=== PATIENT | female | born 1965 | race Asian ===

== ENCOUNTER → 2019-05-20 | Day surgery (SDC) | payer OTHER ==
--- NOTE | 2019-05-19 09:51 | Diagnostic Imaging Report ---
Exam: KUB - 2 views Indication: Preoperative Comparison: None Findings: Right lower pole renal calculi measure up to 10 mm and 7 mm. No other radiographically apparent renal calculi. Nonobstructive bowel gas pattern. No free air. Small phleboliths in the left pelvis. The osseous structures appear unremarkable. Impression: Right lower pole renal calculi measure 10 mm and 7 mm. Signed by: Kenya Banda MD on 05/19/2019 9:48 AM
[~2019-05-20] MED LIST: CEFTRIAXONE SOD 1 GM/NS 50 ML 50 ML IV ONE; CETIRIZINE PO; DEXAMETHASONE SOD PHOS INJ 4 MG/ML VIAL ONE; GLUCOSAMINE DA1 EACH; GLUCOSAMINE PO; LIDOCAINE HCL 2% LOCAL INJ 5 ML SDV VIAL INJ ONE; LOSARTAN PO; ONDANSETRON HCL INJ 2MG/ML 2ML 2 MG/ML VIAL ONE; PROPOFOL IV EMULSION 10 MG/ML 20 ML VIAL ONE; SEVOFLURANE INHAL SOLN 250 ML PEN BTL ONE
--- OUTSIDE RECORDS SUMMARY | 2019-05-20 05:45 | XMS REPORT ---
[facility] Address Unknown Phone Unavailable Care Team Providers Care [employer] Name Role Phone LILIAM BUNCH Unavailable Unavailable Problems This patient has no known problems. Allergies, Adverse Reactions, Alerts This patient has no known allergies or adverse reactions. Medications This patient has no known medications. Results Test Description Test Time Test Comments Text Results Atomic Results Result Comments ABDOMEN-1VIEW ([facility]) 2019-05-19 09:46:00 [place] [address] Patient Name: WIL PANTOJA MR #: [id number] : 1965 Age/Sex: 54/F Req #: [id number] Adm Physician: Ordered by: LILIAM BUNCH MD Report #: [id number] Location: OR Room/Bed: Procedure: [id number] DX/ABDOMEN-1VIEW (KUB) Exam Date: Exam Time: REPORT STATUS: Signed Exam: KUB - 2 views Indication: Preoperative Comparison: None Findings: Right lower pole renal calculi measure up to 10 mm and 7 mm. No other radiographically apparent renal calculi. Nonobstructive bowel gas pattern. No free air. Small phleboliths in the left pelvis. The osseous structures appear unremarkable. Impression: Right lower pole renal calculi measure 10 mm and 7 mm. Signed by: Pito Banda MD on 05/19/2019 9:48 AM Dictated By: PITO BANDA MD 7 Transcribed By: PAULO on 05/19/19947 COPY TO: LILIAM BUNCH MD
[2019-05-20 08:45] VITALS: BP 139/90
--- NOTE | 2019-05-25 14:50 | Operative Report ---
DATE OF PROCEDURE: 05/20/2019 SURGEON: Kodi Villarreal MD PREOPERATIVE DIAGNOSIS: Right kidney stone. POSTOPERATIVE DIAGNOSIS: Right kidney stone. PROCEDURES: 1. Staged right-sided shock wave lithotripsy. 2. Supervision of fluoroscopy. ANESTHESIA: General. ESTIMATED BLOOD LOSS: Minimal. COMPLICATIONS: None. INDICATIONS: Ms. Carlson is a 54-year-old female with a history of intermittently symptomatic right-sided kidney stone. She and I had a long discussion about alternatives, risks, and benefits of doing nothing, shock wave lithotripsy, ureteroscopy, percutaneous surgery or open surgery. She voiced understanding of the options, alternatives, the risks, and benefits and elected to proceed. PROCEDURE IN DETAIL: After informed consent was obtained, the patient was taken to the operative suite, placed supine on the operative table, underwent general anesthesia by the Anesthesia Service. Stone was localized in the X, Y, and Z planes. Treatment was performed per the treatment report. The patient tolerated the procedure well and was transferred to the recovery room in excellent condition. No untoward effects noted. Supervision of fluoroscopy: I was present for the entire procedure and supervised fluoroscopy. There was no radiologist present. Dosages per treatment report. Kodi Villarreal MD ES/MODL /[id number]
== END | disposition home or self-care (01) ==
LOC: OR 05:44
PROVIDERS: ATTEND Urology
DX: N20.0 Calculus of kidney (principal); Z01.810 Encounter for preprocedural cardiovascular examination
CPT/HCPCS: 50590; 74018; 93005; J0696; J1100; J2001; J2405